=== PATIENT | female | born 1995 ===

== ENCOUNTER 2017-02-06 13:45 | Emergency (ER) | payer OTHER ==
--- NOTE | 2017-02-06 15:06 | UC ---
Throat Pain/Nasal Tong HPI - HPI Summary HPI Summary: 02/02/17. FEVER, SORE THROAT, RIGHT EAR PAIN. SWOLLEN TONSILS. 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 Hx Last Menstrual Period: now Onset/Duration: Gradual Onset, Lasting Days Severity: Moderate Cough: None Associated Signs & Symptoms: Positive: Hoarseness - Epiglottits Risk Factors Epiglottis Risk Factors: Negative - Allergies/Home Medications Allergies/Adverse Reactions: Allergies Allergy/AdvReac Type Severity Reaction Status Date / Time No Known Allergies Allergy Verified 02/06/17 14:09 Home Medications: Home Medications Ibuprofen TAB* [Motrin TAB* 400 MG] 400 mg PO SEE INSTRUCTIONS PRN 02/06/17 [ History Confirmed 02/06/17] PMH/Surg Hx/FS Hx/Imm Hx Previously Healthy: Yes - Surgical History Surgical History: None - Family History Known Family History: Negative: Respiratory Disease - Social History Occupation: Student Lives: With Family Alcohol Use: Occasionally Substance Use Type: None Smoking Status (MU): Never Smoked Tobacco Review of Systems Constitutional: Fever, Chills, Fatigue Skin: Negative Eyes: Negative ENT: Sore Throat, Ear Ache Respiratory: Negative Cardiovascular: Negative Gastrointestinal: Negative Genitourinary: Negative Motor: Negative Neurovascular: Negative Musculoskeletal: Negative Neurological: Negative Psychological: Negative Is Patient Immunocompromised?: No All Other Systems Reviewed And Are Negative: Yes Physical Exam Triage Information Reviewed: Yes Appearance: No Pain Distress, Well-Nourished, Ill-Appearing Vital Signs: Initial Vital Signs Temp 98.0 F 02/06/17 14:06 Pulse 99 02/06/17 14:06 Resp 18 02/06/17 14:06 BP 133/78 02/06/17 14:06 Pulse Ox 100 02/06/17 14:06 Vital Signs Reviewed: Yes Eye Exam: Normal ENT: Positive: Pharyngeal erythema, TM dull, Tonsillar swelling, Tonsillar exudate Dental Exam: Normal Neck exam: Normal Neck: Positive: Supple, Nontender, No Lymphadenopathy Respiratory Exam: Normal Respiratory: Positive: Chest non-tender, Lungs clear, Normal breath sounds, No respiratory distress, No accessory muscle use Cardiovascular Exam: Normal Cardiovascular: Positive: RRR, No Murmur, Pulses Normal, Brisk Capillary Refill Abdominal Exam: Normal Abdomen Description: Positive: Nontender, No Organomegaly, Soft. Negative: Hepatomegaly, Splenomegaly Musculoskeletal Exam: Normal Neurological Exam: Normal Psychological Exam: Normal Skin Exam: Normal Throat Pain/Nasal Course/Dx - Differential Dx/Diagnosis Differential Diagnosis/HQI/PQRI: Pharyngitis, Sinusitis, Tonsillitis, URI Provider Diagnoses: TONSILITIS Discharge - Discharge Plan Condition: Stable Disposition: HOME Prescriptions: Clindamycin Cap(NF) [Clindamycin Cap 300 mg Cap(NF)] 300 mg PO TID #21 cap Patient Education Materials: Tonsillitis (ED) Forms: *School Release Referrals: [facility] [Outside]
[2017-02-07 12:02] LABS: Mono Internal Control QC Line Present
[2017-02-07 12:03] LABS: Manual Entry Verification CAS0014
--- NOTE | 2017-02-08 13:25 | UC ---
Progress - Progress Note Progress Note: Brought to my attention that there was a problem with the CBC order. As such , this was re-ordered today. Recommended pt call pcp to see if needed. If no pcp, then please obtain cbc as previously recommended. RN to call pt.
== END 2017-02-06 15:00 | disposition home or self-care (01) ==
LOC: UCEAST 13:45
DX: J03.90 Acute tonsillitis, unspecified (principal)
CPT/HCPCS: 36415; 86308; 87651; 99202; G0463